=== PATIENT | female | born 1935 | race Hispanic/Latino ===

== ENCOUNTER 2017-06-21 14:05 | Emergency (ER) | payer OTHER ==
[2017-06-21] MEDS ORDERED: IBUPROFEN 400 MG TABLET ONE (15:34)
== END 2017-06-21 16:18 | disposition home or self-care (01) ==
LOC: EDH 14:05
DX: S62.354A Nondisplaced fracture of shaft of fourth metacarpal bone, right hand, initial encounter for closed fracture (principal); S62.352A Nondisplaced fracture of shaft of third metacarpal bone, right hand, initial encounter for closed fracture; I25.10 Atherosclerotic heart disease of native coronary artery without angina pectoris; E11.9 Type 2 diabetes mellitus without complications; I10 Essential (primary) hypertension; Z88.6 Allergy status to analgesic agent; W22.8XXA Striking against or struck by other objects, initial encounter; Y93.89 Activity, other specified; Y92.488 Other paved roadways as the place of occurrence of the external cause; Y99.8 Other external cause status
CPT/HCPCS: 29125; 73130

== ENCOUNTER → 2018-02-11 | Outpatient (CLI) | payer OTHER ==
[~2018-02-11] MED LIST: REGADENOSON 0.4 MG/5 ML PF SYG IVP SCH
== END | disposition home or self-care (01) ==
LOC: SHCH 09:30
PROVIDERS: ATTEND Internal Medicine Cardiovascular Disease
DX: I25.119 Atherosclerotic heart disease of native coronary artery with unspecified angina pectoris (principal)
CPT/HCPCS: 78452; 93017; 96374; A9500 ×2; J2785 ×2

== ENCOUNTER → 2018-02-12 | Outpatient (CLI) | payer OTHER | END | disposition home or self-care (01) | LOC: SHCH 16:03 | PROVIDERS: ATTEND Internal Medicine Cardiovascular Disease | DX: I25.119 Atherosclerotic heart disease of native coronary artery with unspecified angina pectoris (principal) | CPT/HCPCS: 93306 ==

== ENCOUNTER 2019-06-01 08:24 | Day surgery (SDC) | payer OTHER ==
[2019-05-30 10:58] VITALS: BP 169/60
[2019-05-30 11:23] LABS: BASOPHILS % (AUTO) 0.9 % (0.0-5.0); EOSINOPHILS % (AUTO) 1.7 % (0.0-8.0); HEMATOCRIT 36.7 % (36-48); LYMPHOCYTES % (AUTO) 24.1 % (21.0-51.0); MEAN CORPUSCULAR HEMOGLOBIN 26.9 pg (27.0-33.0); MEAN CORPUSCULAR HGB CONC 31.3 g/dL (32.0-36.0); MEAN CORPUSCULAR VOLUME 85.9 fL (79-99); MONOCYTES % (AUTO) 7.1 % (3.0-13.0); NEUTROPHILS % (AUTO) 65.7 % (40.0-77.0); PLATELET COUNT (AUTO) 295 K/uL (130-400); RED BLOOD CELL COUNT(AUTO) 4.27 MIL/uL (4.00-5.50); WHITE BLOOD COUNT (AUTO) 8.8 K/uL (4.8-10.8)
[2019-05-30 11:42] LABS: INR 0.93 (0.85-1.15); PARTIAL THROMBOPLASTIN TIME 26.5 SEC (26.3-35.5); PROTHROMBIN TIME 9.8 SEC (9.6-11.6)
[2019-05-30 11:44] LABS: CREATININE 0.9 mg/dL (0.5-1.5); POTASSIUM 4.4 mmol/L (3.5-5.1)
[2019-05-30 12:28] VITALS: BP 156/68
[2019-05-30 12:48] LABS: APPEARANCE,URINE Clear (CLEAR); BILIRUBIN,URINE Negative (NEGATIVE); COLOR,URINE Yellow (YELLOW); GLUCOSE, URINE (UA) Negative (NEGATIVE); KETONES,URINE Negative (NEGATIVE); LEUKOCYTE ESTERASE ,URINE Negative (NEGATIVE); NITRATE,URINE Negative (NEGATIVE); OCCULT BLOOD,URINE Negative (NEGATIVE); PROTEIN,URINE POS 1+ mg/dL (NEGATIVE); UROBILINOGEN,URINE 0.2 mg/dL (0.2-1.0)
[2019-05-30 12:56] LABS: RBC,URINE 0-1 /HPF (0-1); WBC,URINE 0-1 /HPF (0-1)
[2019-05-30 12:57] LABS: BACTERIA,URINE Few /HPF (None Seen); MUCUS,URINE Few LPF (None Seen); SQUAMOUS EPITHELIAL CELL,UR Few /HPF (0-2)
[2019-05-31 13:45] VITALS: BP 134/56
[2019-06-01] VITALS (10 sets, daily range): BP systolic 118–151; BP diastolic 40–66
[~2019-06-01] VITALS: Ht 147.3 cm; Wt 86.6 kg
[~2019-06-01 08:24] MED LIST changes: +AMLO5TAB9 PO; +GLIM2TAB30 PO; +ISOS60TA4 PO; +LOSA25TA41 PO; +METO-409 PO; +MIRA50TA PO; +PANT40TA25 PO; +RANO500T5 PO; -REGADENOSON 0.4 MG/5 ML PF SYG IVP SCH; +SODIUM CHLORIDE 0.9% 1000ML 1,000 ML IV SCH
[2019-06-01] MEDS ORDERED: MIDAZOLAM HCL 1 MG/ML 2ML VIAL ONE ×2 (10:03→11:36)
[2019-06-01] MEDS ORDERED: FENTANYL CITRATE PF 50 MCG/1 ML 2ML VIAL ONE (10:03)
[2019-06-01] MEDS ORDERED: IOHEXOL-350 50ML VIAL IV ONE (10:03)
[2019-06-01] MEDS ORDERED: IOHEXOL 350 MG/ML 100ML INFUS..BTL IV ONE (10:03)
[2019-06-01] MEDS ORDERED: BIVALIRUDIN 250 MG/VIAL IV ONE (10:03)
[2019-06-01] MEDS ORDERED: LIDOCAINE HCL 2% 20ML ONE (10:03)
[2019-06-01] MEDS ORDERED: NITROGLYCERIN 1 MG/VIAL VIAL IV ONE (10:03)
[2019-06-01] MEDS ORDERED: NICARDIPINE HCL 25 MG/10 ML ML IV ONE (10:38)
[2019-06-01] MEDS ORDERED: HEPARIN SODIUM 1000UNIT/ML 10ML VIAL ONE (10:39)
--- NOTE | 2019-06-01 10:45 | NUR ---
procedure pt taken to cath lab tech for scheduled procedure.
[2019-06-01] MEDS ORDERED: SODIUM CHLORIDE 0.9% 1000ML 1,000 ML IV SCH (12:09)
[2019-06-01] MEDS ORDERED: HYDRALAZINE HCL 20 MG/ML VIAL IV PRN (12:15)
[2019-06-01] MEDS ORDERED: GLUCAGON 1MG KIT 1 MG ML IM PRN (12:15)
[2019-06-01] MEDS ORDERED: DEXTROSE 50%-WATER 50 ML DISP.SYRIN IV PRN (12:15)
--- NOTE | 2019-06-01 12:30 | NUR ---
post received patient from cathead operator s/p [facility] , unsuccessful radial approach, dressing to site dry and intact, right groin with mynx closure device. dressing to site dry and intact, see post cath assessment. pt awke and alert, denied any pain or discomforts. vs stable on arrival. plan of care discuss with patient. instructed to call nurse for any assistance needed. call light within reach.
[2019-06-01] MEDS ORDERED: INSULIN HUMULIN R 100 UNIT/ML 3ML SQ SCH (16:30)
--- NOTE | 2019-06-01 17:30 | NUR ---
dc pt dc home via wc, no distress noted, pt accompanied by family . right groin site with no bleeding or hematoma.
== END 2019-06-01 17:30 | disposition home or self-care (01) ==
LOC: DAH 08:24
PROVIDERS: ATTEND Internal Medicine Cardiovascular Disease
DX: I25.110 Atherosclerotic heart disease of native coronary artery with unstable angina pectoris (principal); I10 Essential (primary) hypertension; E78.5 Hyperlipidemia, unspecified; G45.9 Transient cerebral ischemic attack, unspecified; E11.9 Type 2 diabetes mellitus without complications; M54.17 Radiculopathy, lumbosacral region; E66.9 Obesity, unspecified; Z90.49 Acquired absence of other specified parts of digestive tract; Z90.89 Acquired absence of other organs; Z98.890 Other specified postprocedural states; Z90.710 Acquired absence of both cervix and uterus
CPT/HCPCS: 36415; 71045; 80048; 81001; 82948 ×3; 85025; 85610; 85730; 93005; 93458; A4215; A4216; A4221; A4222; A4223 ×3; A4606; A4663; C1760; C1894 ×3; J1644 ×2; J2250 ×2; J3010; J3490 ×3; J7030; Q9965; Q9967; 99156; 99157; J0583

== ENCOUNTER → 2020-01-27 | Outpatient (CLI) | payer OTHER ==
[~2020-01-27] MED LIST changes: -PANT40TA25 PO; +PANT40TA54 PO; -RANO500T5 PO; +RANO500T6 PO; -SODIUM CHLORIDE 0.9% 1000ML 1,000 ML IV SCH
== END | disposition home or self-care (01) ==
LOC: RAH 10:00
PROVIDERS: ATTEND Family Medicine
DX: Z01.810 Encounter for preprocedural cardiovascular examination (principal); M47.814 Spondylosis without myelopathy or radiculopathy, thoracic region
CPT/HCPCS: 71046

== ENCOUNTER 2020-02-08 12:00 | Observation (INO) | payer OTHER ==
[~2020-02-08] VITALS: Ht 147.3 cm; Wt 88.9 kg
[~2020-02-08 12:00] MED LIST changes: +AMLO-257 PO; -AMLO5TAB9 PO; -RANO500T6 PO
[2020-02-08 12:19] LABS: EOSINOPHILS % (AUTO) 2.5 % (0.0-8.0); HEMATOCRIT 37.9 % (36-48); LYMPHOCYTES % (AUTO) 28.3 % (21.0-51.0); MEAN CORPUSCULAR HEMOGLOBIN 27.6 pg (27.0-33.0); MEAN CORPUSCULAR HGB CONC 31.7 g/dL (32.0-36.0); MEAN CORPUSCULAR VOLUME 87.3 fL (79-99); MONOCYTES % (AUTO) 7.1 % (3.0-13.0); NEUTROPHILS % (AUTO) 60.7 % (40.0-77.0); PLATELET COUNT (AUTO) 257 K/uL (130-400); RED BLOOD CELL COUNT(AUTO) 4.34 MIL/uL (4.00-5.50); RED CELL DISTRIBUTION WIDTH 14.6 % (11.0-15.5); WHITE BLOOD COUNT (AUTO) 7.7 K/uL (4.8-10.8)
[2020-02-08 12:26] LABS: APPEARANCE,URINE Clear (CLEAR); BILIRUBIN,URINE Negative (NEGATIVE); COLOR,URINE Yellow (YELLOW); GLUCOSE, URINE (UA) Negative (NEGATIVE); KETONES,URINE Negative (NEGATIVE); LEUKOCYTE ESTERASE ,URINE Small (NEGATIVE); NITRATE,URINE Negative (NEGATIVE); OCCULT BLOOD,URINE Negative (NEGATIVE); PH,URINE 5.5 (5.0-8.0); PROTEIN,URINE POS 1+ mg/dL (NEGATIVE)
[2020-02-08 12:39] LABS: BACTERIA,URINE Rare /HPF (None Seen); RBC,URINE 0-1 /HPF (0-1); SQUAMOUS EPITHELIAL CELL,UR Few /HPF (0-2)
[2020-02-08 12:53] LABS: CREATININE 0.9 mg/dL (0.5-1.5); POTASSIUM 4.6 mmol/L (3.5-5.1)
[2020-02-08 13:07] LABS: INR 0.93 (0.85-1.15); PROTHROMBIN TIME 10.1 SEC (9.6-11.6)
[2020-02-14 10:47] VITALS: BP 202/95
[2020-02-14] MEDS ORDERED: POLY17PO4 PO (11:48)
[2020-02-14] MEDS ORDERED: FLUT16H NS (11:48)
[2020-02-14] MEDS ORDERED: ERGO500014 PO (11:48)
[2020-02-14] MEDS ORDERED: ROSU10TA28 PO (11:48)
[2020-02-14] MEDS ORDERED: CYAN1TAB44 PO (11:48)
--- NOTE | 2020-02-14 16:14 | NUR ---
LABS ABNORMAL UA REPORTED TO DR. NIELSEN. FURTHER ORDERS GIVEN AND WILL BE CARRIED OUT
[2020-02-15] VITALS (20 sets, daily range): BP systolic 114–162; BP diastolic 53–71
[2020-02-15] MEDS ORDERED: GENTAMICIN SULFATE 240 MG in SODIUM CHLORIDE 0.9% 100 ML IV PRN (08:00)
[2020-02-15] MEDS ORDERED: SODIUM CHLORIDE 0.9% 1000ML 1,000 ML IV ONE (12:15)
[2020-02-15] MEDS ORDERED: CHOL100046 PO (13:07)
[2020-02-15] MEDS ORDERED: CEFAZOLIN SODIUM 1 GM VIAL ONE ×5 (15:27→17:50)
[2020-02-15] MEDS ORDERED: TRANEXAMIC ACID 1000MG/10ML ONE ×2 (15:45→20:26)
[2020-02-15] MEDS ORDERED: KETOROLAC TROMETHAMINE 15MG/ML ONE (15:45)
[2020-02-15] MEDS ORDERED: ACETAMINOPHEN EXTRA STRENGTH 500 MG TABLET ONE (15:45)
[2020-02-15] MEDS ORDERED: CELECOXIB 200 MG CAP ONE (15:45)
[2020-02-15] MEDS ORDERED: MIDAZOLAM HCL 1 MG/ML 2ML VIAL ONE (17:53)
[2020-02-15] MEDS ORDERED: FENTANYL CITRATE PF 50 MCG/1 ML 5ML AMP IV ONE (17:54)
[2020-02-15] MEDS ORDERED: FERROUS FUMARATE 324 MG TABLET PO PRN (20:00)
[2020-02-15] MEDS ORDERED: TRAMADOL HCL 50 MG TABLET PO PRN (20:00)
[2020-02-15] MEDS ORDERED: OXYCODONE HCL 5 MG TAB PO PRN (20:00)
[2020-02-15] MEDS ORDERED: POTASSIUM CHLORIDE 20 MEQ ERTAB PO PRN (20:00)
[2020-02-15] MEDS ORDERED: DiphenhydrAMINE HCL 50 MG/ML VIAL IVP PRN (20:00)
[2020-02-15] MEDS ORDERED: ONDANSETRON HCL 4 MG/2 ML VIAL IVP PRN (20:00)
[2020-02-15] MEDS ORDERED: CALCIUM CARBONATE 500 MG TABLET PO PRN (20:00)
[2020-02-15] MEDS ORDERED: TEMAZEPAM 15 MG CAPSULE PO PRN (20:00)
[2020-02-15] MEDS ORDERED: POTASSIUM CHLORIDE 20MEQ/100ML 100 ML IV PRN (20:00)
[2020-02-15] MEDS ORDERED: POTASSIUM CHLORIDE 10% ELIXIR 20 MEQ/15 ML UDCUP PO PRN (20:00)
[2020-02-15] MEDS ORDERED: LIDOCAINE HCL-MPF 1% 2ML VIAL IV PRN (20:00)
[2020-02-15] MEDS ORDERED: MEPERIDINE-PF 25 MG/ML SYG ONE (20:27)
[2020-02-15] MEDS: CIPROFLOXACIN HCL 500 MG TABLET PO SCH (21:00)
[2020-02-15] MEDS: INSULIN HUMULIN R 100 UNIT/ML 3ML SQ SCH (21:00)
--- NOTE | 2020-02-15 21:45 | NUR ---
POST OP PATIENT ARRIVED AAOX3 BUT DROWSY. DRESSING TO RIGHT KNEE DRY AND INTACT WITH NO LEAKS. PATIENT DOES COMPLAIN OF SHIVERS TO HER LEFT SIDE OF BODY.
[2020-02-15] MEDS ORDERED: POLYETHYLENE GLYCOL 3350 17 GM POWD.PACK PO PRN (22:00)
[2020-02-15] MEDS: PREGABALIN 25 MG CAP PO SCH (22:25)
[2020-02-15] MEDS: SODIUM CHLORIDE 0.9% 1000ML 1,000 ML IV SCH (22:25)
[2020-02-15] MEDS: CELECOXIB 200 MG CAP PO SCH (22:25)
[2020-02-15] MEDS: FAMOTIDINE 20MG TAB 20 MG TAB PO SCH (22:25)
[2020-02-15] MEDS: OXYCODONE HCL 5 MG TAB PO PRN (22:26)
[2020-02-15] MEDS: ACETAMINOPHEN EXTRA STRENGTH 500 MG TABLET PO SCH (22:27)
--- NOTE | 2020-02-15 23:20 | NUR ---
CHEST PRESSURE PATIENT COMPLAINS OF CHEST PRESSURE TO LEFT SIDE AND SHIVERS CONTINUE. DR NIELSEN MADE AWARE OF PATIENT STATUS AND ORDER FOR AN ECG ORDERED AND CARRIED OUT. WE HAVE DIFFICULTY WITH ECG DUE TO THE SHIVERS IT PRODUCED A LOT OF ARTIFACT ON THE ECG, BUT DID NOT SHOW A LETHAL RHYTHM. WILL MONITOR PATIENT.
[2020-02-16] VITALS (9 sets, daily range): BP systolic 102–151; BP diastolic 45–78
[2020-02-16] MEDS: CEFAZOLIN SODIUM 1 GM VIAL IVP SCH ×2 (00:29→09:14)
[2020-02-16 03:50] LABS: HEMATOCRIT 31.7 % (36-48); MEAN CORPUSCULAR HEMOGLOBIN 27.9 pg (27.0-33.0); MEAN CORPUSCULAR HGB CONC 31.9 g/dL (32.0-36.0); MEAN CORPUSCULAR VOLUME 87.6 fL (79-99); RED BLOOD CELL COUNT(AUTO) 3.62 MIL/uL (4.00-5.50); RED CELL DISTRIBUTION WIDTH 14.8 % (11.0-15.5)
[2020-02-16 03:59] LABS: POTASSIUM 4.4 mmol/L (3.5-5.1)
[2020-02-16] MEDS: ACETAMINOPHEN EXTRA STRENGTH 500 MG TABLET PO SCH ×3 (04:28→20:41)
[2020-02-16] MEDS: SODIUM CHLORIDE 0.9% 1000ML 1,000 ML IV SCH ×2 (05:08→16:00)
[2020-02-16] MEDS: INSULIN HUMULIN R 100 UNIT/ML 3ML SQ SCH ×4 (05:42→20:43)
[2020-02-16] MEDS: OXYCODONE HCL 5 MG TAB PO PRN (07:20)
[2020-02-16] MEDS: FLUTICASONE PROPIONATE 50MCG/SPRAY 16 GM BOTTLE NS SCH ×2 (09:00→20:43)
[2020-02-16] MEDS: GLIMEPIRIDE 2 MG TABLET PO SCH (09:00)
[2020-02-16] MEDS: MIRABEGRON PO SCH (09:00)
[2020-02-16] MEDS: FAMOTIDINE 20MG TAB 20 MG TAB PO SCH ×2 (09:16→20:40)
[2020-02-16] MEDS: APIXABAN 2.5 MG TABLET PO SCH ×2 (09:16→20:40)
[2020-02-16] MEDS: LOSARTAN 50 MG TABLET PO SCH (09:16)
[2020-02-16] MEDS: AMLODIPINE BESYLATE 5 MG TAB PO SCH (09:17)
[2020-02-16] MEDS: PREGABALIN 25 MG CAP PO SCH ×2 (09:17→20:41)
[2020-02-16] MEDS: VITAMIN B COMPLEX 1 CAPSULE PO SCH (09:17)
[2020-02-16] MEDS: CELECOXIB 200 MG CAP PO SCH ×2 (09:17→20:41)
[2020-02-16] MEDS: ISOSORBIDE MONO 60 MG TAB.SR PO SCH (09:17)
[2020-02-16] MEDS: METOPROLOL TARTRATE 50 MG TAB PO SCH (09:18)
[2020-02-16] MEDS: ATORVASTATIN CALCIUM 40 MG TABLET PO SCH (09:18)
[2020-02-16] MEDS: POLYETHYLENE GLYCOL 3350 17 GM POWD.PACK PO SCH (09:18)
[2020-02-16] MEDS: PANTOPRAZOLE SODIUM 40 MG TABLET.DR PO SCH (09:19)
[2020-02-16] MEDS: CIPROFLOXACIN HCL 500 MG TABLET PO SCH ×2 (10:54→21:13)
[2020-02-16] MEDS: KETOROLAC TROMETHAMINE 15MG/ML IV PRN (11:00)
--- NOTE | 2020-02-16 12:11 | NUR ---
[id number] patient signed ROSALES Letter,I faxed ROSALES Letter to [phone] and placed in chart under consent tab.
--- NOTE | 2020-02-16 13:14 | NUR ---
DCP CM met with pt discussed dc plans. Pt is independent prior to surgery, lives at home alone, daughter lives close by. Pt has a walker but brake doesn't work, and cane. Provider Thu-Thu 9-2pm, Sat-[place] 9-11:30am. Denies any other equipments/services. Daughter able to assist with transportation and needs as necessary. Pt request rehab placement as she lives by herself and daughter works. MERI signed for [facility] and [facility]. DC plan to SNF. CM to continue to follow up. Addendum: 02/16/20 at 1319 by BUNNY VILLEGAS LVN Amended: Links added.
--- NOTE | 2020-02-16 13:21 | NUR ---
MARIE Note: [facility] pending approval CM faxed order, clinicals, PT, PASRR, Covid transfer form, covid result to [facility], confirmation received. Spoke to Chari sanchez/[facility] dcp once pt has approval. Primary nurse Kathy TAVAREZ aware. CM to continue to follow up.
--- NOTE | 2020-02-16 13:23 | NUR ---
CM Note: [facility] pending approval and delivery for standard walker no wheels and 3in1 chair CM [facility] confirmation received. Spoke to Aayush sanchez/[facility], made aware pt will go to [facility] first, DME to coordinate with pt regarding standard walker no wheels and 3in1 chair once closer to DC from [facility]. CM to continue to follow up.
--- NOTE | 2020-02-16 20:00 | NUR ---
ASSESSMENT NOTE PATIENT AWAKE, ALERT, OX3, NO SOB, NO C/O PAIN AT THIS TIME, RIGHT KNEE WITH ONDINA DRESSING D/I WITH NEGATIVE PRESSURE, TEACH PATIENT PLAN OF CARE AND EXPECTED OUTCOME, PATIENT VERBALIZES UNDERSTANDING VIA TEACH BACK, CALL CAMPBELL AT REACH
[2020-02-17] VITALS (7 sets, daily range): BP systolic 116–136; BP diastolic 49–80
[2020-02-17] MEDS: ACETAMINOPHEN EXTRA STRENGTH 500 MG TABLET PO SCH ×3 (03:47→20:16)
[2020-02-17] MEDS: OXYCODONE HCL 5 MG TAB PO PRN ×2 (03:47→13:34)
[2020-02-17] MEDS: INSULIN HUMULIN R 100 UNIT/ML 3ML SQ SCH ×4 (06:10→20:53)
[2020-02-17] MEDS: MIRABEGRON PO SCH (09:00)
[2020-02-17] MEDS: POLYETHYLENE GLYCOL 3350 17 GM POWD.PACK PO SCH ×2 (09:00→10:09)
[2020-02-17] MEDS: FLUTICASONE PROPIONATE 50MCG/SPRAY 16 GM BOTTLE NS SCH ×2 (10:00→20:53)
--- NOTE | 2020-02-17 10:00 | NUR ---
CM Note: [facility] approval CM spoke to Chari Jay, pt has approval. Pt safe to transfer via [facility]. Primary nurse Adamaris TAVAREZ aware. CM to continue to follow up.
[2020-02-17] MEDS: METOPROLOL TARTRATE 50 MG TAB PO SCH (10:09)
[2020-02-17] MEDS: FAMOTIDINE 20MG TAB 20 MG TAB PO SCH ×2 (10:09→20:16)
[2020-02-17] MEDS: PREGABALIN 25 MG CAP PO SCH ×2 (10:09→20:16)
[2020-02-17] MEDS: PANTOPRAZOLE SODIUM 40 MG TABLET.DR PO SCH (10:10)
[2020-02-17] MEDS: AMLODIPINE BESYLATE 5 MG TAB PO SCH (10:11)
[2020-02-17] MEDS: CELECOXIB 200 MG CAP PO SCH ×2 (10:11→20:16)
[2020-02-17] MEDS: APIXABAN 2.5 MG TABLET PO SCH ×2 (10:11→20:16)
[2020-02-17] MEDS: VITAMIN B COMPLEX 1 CAPSULE PO SCH (10:11)
[2020-02-17] MEDS: LOSARTAN 50 MG TABLET PO SCH (10:11)
[2020-02-17] MEDS: ATORVASTATIN CALCIUM 40 MG TABLET PO SCH (10:11)
[2020-02-17] MEDS: ISOSORBIDE MONO 60 MG TAB.SR PO SCH (10:11)
[2020-02-17] MEDS: GLIMEPIRIDE 2 MG TABLET PO SCH (10:17)
[2020-02-17] MEDS: CIPROFLOXACIN HCL 500 MG TABLET PO SCH ×2 (10:19→20:54)
[2020-02-17] MEDS: KETOROLAC TROMETHAMINE 15MG/ML IV PRN (10:23)
--- NOTE | 2020-02-17 16:15 | NUR ---
DR. GIA ISIDRO ALREADY AWARE THAT PATIENT HAS BEEN ACCEPTED TO [facility]. INFORMED MD THAT SQL ENGINEER CHUNG INFORMED ME THAT COVID PCR RESULTS NOT NEEDED FOR [facility] TRANSFER.
--- NOTE | 2020-02-17 20:00 | NUR ---
assessment note patient awake, alert, ox3, no sob, no c/o pain at this time , encourage deep breathing exercises and reinforce is as previously done, right knee with laurie dressing with negative pressure, teach patient plan of care and expected outcome, patient verbalizes understanding via teach back , call luque at reach
[2020-02-18] MEDS: ACETAMINOPHEN EXTRA STRENGTH 500 MG TABLET PO SCH ×2 (04:02→11:47)
[2020-02-18 04:14] VITALS: BP 115/51
[2020-02-18] MEDS: INSULIN HUMULIN R 100 UNIT/ML 3ML SQ SCH ×2 (06:10→11:30)
[2020-02-18] MEDS: FAMOTIDINE 20MG TAB 20 MG TAB PO SCH (08:22)
[2020-02-18] MEDS: OXYCODONE HCL 5 MG TAB PO PRN ×2 (08:23→12:08)
[2020-02-18] MEDS: VITAMIN B COMPLEX 1 CAPSULE PO SCH (08:23)
[2020-02-18] MEDS: APIXABAN 2.5 MG TABLET PO SCH (08:23)
[2020-02-18] MEDS: ATORVASTATIN CALCIUM 40 MG TABLET PO SCH (08:24)
[2020-02-18] MEDS: AMLODIPINE BESYLATE 5 MG TAB PO SCH (08:24)
[2020-02-18] MEDS: METOPROLOL TARTRATE 50 MG TAB PO SCH (08:25)
[2020-02-18] MEDS: CELECOXIB 200 MG CAP PO SCH (08:25)
[2020-02-18] MEDS: PREGABALIN 25 MG CAP PO SCH (08:25)
[2020-02-18] MEDS: GLIMEPIRIDE 2 MG TABLET PO SCH (08:27)
[2020-02-18] MEDS: POLYETHYLENE GLYCOL 3350 17 GM POWD.PACK PO SCH (08:27)
[2020-02-18] MEDS: MIRABEGRON PO SCH (08:27)
[2020-02-18] MEDS ORDERED: APIX2.5T PO (08:30)
[2020-02-18] MEDS ORDERED: HYDR-4457 PO (08:30)
[2020-02-18] MEDS ORDERED: CIPR500S5 PO (08:53)
[2020-02-18 09:10] VITALS: BP 131/54
--- NOTE | 2020-02-18 10:00 | NUR ---
PHARMACY CALLED PATIENT PENDING CIPROFLOXACIN 500MG PO DOSE PRIOR TO TRANSFER. CALLED PHARMACY AND WAS TOLD MEDICATION WOULD BE DELIVERED SOON.
[2020-02-18] MEDS: LOSARTAN 50 MG TABLET PO SCH (10:10)
[2020-02-18] MEDS: ISOSORBIDE MONO 60 MG TAB.SR PO SCH (10:10)
[2020-02-18] MEDS: PANTOPRAZOLE SODIUM 40 MG TABLET.DR PO SCH (10:10)
--- NOTE | 2020-02-18 11:20 | NUR ---
PHARMACY CALLED AGAIN PATIENT STILL PENDING CIPROFLOXACIN 500MG PO. CALLED PHARMACY TO INFORM THAT MEDICATION HAS NOT BEEN DELIVERED YET. WAS TOLD THAT MEDICATION WOULD BE DELIVERED SHORTLY.
[2020-02-18] MEDS: CIPROFLOXACIN HCL 500 MG TABLET PO SCH (11:48)
[2020-02-18 11:52] VITALS: BP 122/51
--- NOTE | 2020-02-18 14:00 | NUR ---
JOSH DUENAS GAVE REPORT TO ROSA OF JOSH DUENAS [phone]. INFORMED THAT PATIENT IN ROOM 332 AND READY TO BE PICKED UP VIA FACILITY VAN. INFORMED OF DR. NIELSEN DISCHARGE ORDERS, ONDINA DRESSING REMOVAL DATE 02/22/20. DR. NIELSEN ORIGINAL RX FOR NORCO 5/325MG, ELIQUIS, CIPROFLOXACIN PLACED IN CHART COPY FOLDER.
[2020-02-18] MEDS ORDERED: BISACODYL 10 MG SUPP.RECT RC PRN (20:00)
== END 2020-02-18 15:00 ==
LOC: EDSTATUS 12:00 → DAHIP 02-15 11:06 → 3AH 02-15 21:31
PROVIDERS: ADMIT Orthopaedic Surgery; ATTEND Orthopaedic Surgery
DX: M17.11 Unilateral primary osteoarthritis, right knee (principal); Z20.828 Contact with and (suspected) exposure to other viral communicable diseases; N39.0 Urinary tract infection, site not specified; I25.10 Atherosclerotic heart disease of native coronary artery without angina pectoris; E11.9 Type 2 diabetes mellitus without complications; I10 Essential (primary) hypertension; Z86.73 Personal history of transient ischemic attack (TIA), and cerebral infarction without residual deficits; Z88.5 Allergy status to narcotic agent; Z90.710 Acquired absence of both cervix and uterus; Z90.49 Acquired absence of other specified parts of digestive tract
CPT/HCPCS: 27447; 36415 ×2; 80048 ×2; 81001; 82948 ×13; 85025; 85027; 85610; 87077; 87088; 87186; 87426; 87641; 88305; 88311; 93005; 96361 ×2; 96365; 96375; 96376; 97039 ×5; 97116 ×6; 97161; 97530 ×6; A4215; A4221; A4222; A4223; A4600; A4649 ×3; A4663; A4930; A5120; A9272; C1776; G0378 ×14; G8978; G8979; G8980; G8981; G8982; G8983; J0690 ×7; J1885 ×3; J2175; J2250; J3010; J3490 ×2; J7030; U0003 ×2; 99218

== ENCOUNTER 2020-02-19 05:29 | Emergency (ER) | payer OTHER ==
[~2020-02-19 05:29] MED LIST changes: +APIX2.5T PO; +CHOL100046 PO; +CIPR500S5 PO; +CYAN1TAB44 PO; +FLUT16H NS; +HYDR-4457 PO; +POLY17PO4 PO; +ROSU10TA28 PO
[2020-02-19] MEDS ORDERED: BISACODYL 10 MG SUPP.RECT RC ONE (05:57)
[2020-02-19 06:14] LABS: BASOPHILS % (AUTO) 0.6 % (0.0-5.0); HEMATOCRIT 31.5 % (36-48); LYMPHOCYTES % (AUTO) 15.5 % (21.0-51.0); MEAN CORPUSCULAR HEMOGLOBIN 28.4 pg (27.0-33.0); MEAN CORPUSCULAR HGB CONC 32.7 g/dL (32.0-36.0); MEAN CORPUSCULAR VOLUME 86.8 fL (79-99); MONOCYTES % (AUTO) 12.3 % (3.0-13.0); NEUTROPHILS % (AUTO) 69.3 % (40.0-77.0); PLATELET COUNT (AUTO) 253 K/uL (130-400); RED BLOOD CELL COUNT(AUTO) 3.63 MIL/uL (4.00-5.50); RED CELL DISTRIBUTION WIDTH 14.6 % (11.0-15.5); WHITE BLOOD COUNT (AUTO) 7.1 K/uL (4.8-10.8)
[2020-02-19 06:27] LABS: ALBUMIN 2.8 g/dL (3.5-5.0); BILIRUBIN,TOTAL 0.6 mg/dL (0.2-1.0); CREATININE 1.1 mg/dL (0.5-1.5); POTASSIUM 4.2 mmol/L (3.5-5.1); TOTAL PROTEIN, SERUM 6.4 g/dL (6.0-8.3)
[2020-02-19 06:29] LABS: APPEARANCE,URINE CLEAR (CLEAR); BILIRUBIN,URINE NEGATIVE (NEGATIVE); COLOR,URINE YELLOW (YELLOW); GLUCOSE, URINE (UA) NEGATIVE (NEGATIVE); KETONES,URINE NEGATIVE (NEGATIVE); LEUKOCYTE ESTERASE ,URINE NEGATIVE (NEGATIVE); NITRATE,URINE NEGATIVE (NEGATIVE); OCCULT BLOOD,URINE NEGATIVE (NEGATIVE); PH,URINE 5.5 (5.0-8.0); PROTEIN,URINE NEGATIVE (NEGATIVE); UROBILINOGEN,URINE 0.2 mg/dL (0.2-1.0)
== END 2020-02-19 12:23 | disposition home or self-care (01) ==
LOC: EDH 05:29
DX: K59.00 Constipation, unspecified (principal); E11.9 Type 2 diabetes mellitus without complications; I10 Essential (primary) hypertension; E78.00 Pure hypercholesterolemia, unspecified; K21.9 Gastro-esophageal reflux disease without esophagitis; Z88.4 Allergy status to anesthetic agent
CPT/HCPCS: 36415; 51702; 71045; 74176; 80053; 81003; 83605; 83690; 84484; 85025; 87040; 87088; 93005

== ENCOUNTER → 2024-03-03 | Outpatient (CLI) | payer OTHER ==
[~2024-03-03] MED LIST changes: -APIX2.5T PO; +CEPH500C2 PO; -CHOL100046 PO; -CIPR500S5 PO; -CYAN1TAB44 PO; -FLUT16H NS; -HYDR-4457 PO; -ISOS60TA4 PO; +ISOS60TA77 PO; +OMEP20TA2 PO; -PANT40TA54 PO; -POLY17PO4 PO; -ROSU10TA28 PO
== END | disposition home or self-care (01) ==
LOC: SHCH 07:45
PROVIDERS: ATTEND Internal Medicine Cardiovascular Disease
DX: I25.110 Atherosclerotic heart disease of native coronary artery with unstable angina pectoris (principal)
CPT/HCPCS: 93306

== ENCOUNTER → 2024-05-20 | Outpatient (CLI) | payer OTHER ==
[2024-05-20] MEDS: REGADENOSON 0.4 MG/5 ML PF SYG IVP ONE (15:52)
--- NOTE | 2024-05-26 11:38 | HMCSR ---
APPROVED REPORT Height: 5 ft 0in Weight: 194 lbs TEST INDICATIONS CAD The imaging protocol used to acquire images was Rest Tc-99m/stress Tc-99m 1 day Consent: The procedure was explained and understood by the patient. Informerd consent was witnessed Ru Guadalupe RN First, low dose rest was performed then high dose stress. RESTING DATA: The resting ekg shows: NSR Rest SPECT myocardial perfusion imaging was performed in supine position 129 minutes following the in travenous injection of 12.8 mCi of Tc-99 Sestamibi. Time of rest injection: 09:03: Date: 05/20/2024 Time of rest imagin:12: Date: 05/20/2024 PHARMACOLOGIC STRESS: Pharmacologic stress test was performed by injecting regadenoson 0.4 mg IV push followed by the intra venous injection of 31.3 mCi of Tc-99 Sestamibi. Time of stress injection: 11:56: Date: 05/20/2024 Time of stress imagin:38: Date: 05/20/2024 Heart Rate at time of stress injection: 63 bpm. Gated Stress SPECT was performed 102 minutes after stress injection. The images were gated to evaluate regional wall motion and calculate left ventricular ejection fracti on. STRESS DETAILS Reason for Termination: Infusion complete Stress Symptoms: Flushing Max HR Achieved: 97 bpm % of APMHR Achieved: 73 Max Blood Pressure: 177/62 mmHg Stress ECG: NSR Study quality was good. Lung uptake was Normal. Artifact: breast and diaphragmatic artifact LEFT VENTRICLE Size: The left ventricular size is normal. Systolic Function:The left ventricular systolic function is normal. Wall Motion: Cannot assess regional wall motion abnormalities. The left ventricular ejection fraction was calculated to be 64%.TID = . LV PERFUSION The rest and stress images show normal perfusion. IMPRESSION Normal pharmacologic nuclear stress test. Global LV Function: Normal Stress ECG Summary: Normal LV Perfusion Summary: Normal Conclusion Normal pharmacologic nuclear stress test. Global LV Function: Normal Stress ECG Summary: Normal LV Perfusion Summary: Normal
== END | disposition home or self-care (01) ==
LOC: SHCH 08:35
PROVIDERS: ATTEND Internal Medicine Cardiovascular Disease
DX: I47.10 Supraventricular tachycardia, unspecified (principal); I25.110 Atherosclerotic heart disease of native coronary artery with unstable angina pectoris
CPT/HCPCS: 78452; 93017; J2785; A9500 ×2

== ENCOUNTER → 2024-07-19 | Outpatient (CLI) | payer OTHER ==
--- NOTE | 2024-07-19 11:40 | HMCIMG ---
Exam Type: CHEST 2VWS Clinical Information: WORSENING SOB, previous insterstitial findings on previous CXR Comparison: None Findings: Old healed left-sided rib fractures seen. The lungs are clear of infiltrates. The heart is enlarged. Bony and soft tissue structures of the chest wall are unremarkable. IMPRESSION: Cardiomegaly. Clear lungs.
== END | disposition home or self-care (01) ==
LOC: RAH 08:46
PROVIDERS: ATTEND Internal Medicine
DX: R06.02 Shortness of breath (principal); I51.7 Cardiomegaly
CPT/HCPCS: 71046